=== PATIENT | female | born 1980 | race Caucasian/White ===

== ENCOUNTER 2017-12-10 21:10 | Emergency (ER) | payer OTHER ==
[~2017-12-10] VITALS: Ht 152.4 cm; Wt 70.3 kg
[~2017-12-10 21:10] MED LIST: ACEBUTCAFT; ACET325UDC; ALBU90OI INH; ALPR1; ALPR1 PO; ASPI81EC; AZIT250 PO; AZIT500; AZIT500 PO; BELPHEELB PO; BENZ100A PO; BUTASPCAF; CARI350 PO; CEFD300 PO; CEPH500 PO; CIPR500 PO; CLIN300 PO; CLON.1 PO; CLON.5; CLON1; DIAZ5; DIAZ5 PO; DIPATR PO; DIVA500EC; DIVA500ER; DOCU100; DOXY100; ESOM20; FAMO40 PO; GUAI100SY; HYDACE25S PR; HYDACE5; HYDACE5 PO; HYDACE7.5; HYDGUAL120 PO; HYDR1TAB94 PO; HYOS.125 SL; IBUP600 PO; KETO10 PO; LACT10SY PO; LAMO25 PO; LEVFLO250 PO; LEVO750 PO; LIDO5TO TOP; LOPE2C PO; LORA.5 PO; LORA1 PO; MEDR10 PO; MEDR2.5; MELO7.5 PO; METR500 PO; MULVITMINE; Monodox100 MG PO; NAPR500 PO; NAPR500ERA; NAPR550 PO; NITR100CA PO; OMEP20ER PO; ONDA4ODT MM; OTC POTASSIUM; OXYACE5T PO; OXYC5; PANT40 PO; PARO10; PARO10 PO; PARO20; PARO20 PO; PARO25 PO; PHENA200 PO; PHENY100ER PO; POTCHL20ER PO; PRENZ; PROACE100; PROC10 PO; PROC25S PR; PROC5S; PROM25 PO; RANI150; RXDIPATR PO; RXHYDACE PO; RXLORA1 PO; RXOXYACE PO; RXTRAM50 PO; SERT50 PO; SPACE CHAMBER1 EACH MC; SULTRISS PO; TOPI100; TOPI100 PO; TOPI25; TRAM50; TRAM50 PO
[2017-12-10 21:55] LABS: BASOPHILS ABSOLUTE AUTO 0.04 K/mm3 (0.00-0.23); BASOPHILS PERCENT AUTO 0 % (0-2); EOSINOPHILS ABSOLUTE AUTO 0.11 K/mm3 (0.00-0.68); EOSINOPHILS PERCENT AUTO 1 % (0-6); Hematocrit 43.8 % (33.0-51.0); Hemoglobin 14.4 g/dL (11.5-16.0); IMMATURE GRAN ABSOLUTE AUTO 0.07 K/mm3 (0.00-0.10); IMMATURE GRAN PERCENT AUTO 0 % (0-1); LYMPHOCYTES ABSOLUTE AUTO 2.51 K/mm3 (0.84-5.20); LYMPHOCYTES PERCENT AUTO 14 % (21-46); MONOCYTES ABSOLUTE AUTO 0.94 K/mm3 (0.16-1.47); MONOCYTES PERCENT AUTO 5 % (4-13); Mean Corpuscular HGB 28.5 pg (26.0-34.0); Mean Corpuscular HGB Conc 32.9 g/dL (31.5-36.5); Mean Corpuscular Volume 87 fL (80-100); Mean Platelet Volume 8.8 fL (9.1-12.4); NEUTROPHILS ABSOLUTE AUTO 14.06 K/mm3 (1.96-9.15); NEUTROPHILS PERCENT AUTO 79 % (41-73); Platelet Count 523 K/mm3 (150-400); RDW Coefficient Variation 12.6 % (11.7-14.2); RDW Standard Deviation 39.8 fL (35.1-46.3); Red Blood Cell Count 5.05 M/mm3 (3.80-5.20); White Blood Cell Count 17.73 K/mm3 (4.00-11.30)
[2017-12-10 22:15] LABS: Alanine Aminotransfer (ALT/SGP 18 U/L (12-78); Albumin, Blood 3.6 g/dL (3.4-5.0); Albumin/Globulin Ratio 0.8 (0.8-1.8); Alk Phos 91 U/L (50-136); Anion Gap 6 mmol/L (6-16); Aspartate Aminotrans (AST/SGOT 11 U/L (12-37); Bilirubin, Total 0.3 mg/dL (0.1-1.0); Blood Urea Nitrogen 11 mg/dL (8-24); Bun/Creatinine Ratio 15.4 (12.0-20.0); CO2, Blood 30 mmol/L (21-32); Calcium, Blood 8.5 mg/dL (8.5-10.1); Chloride, Blood 101 mmol/L (98-108); Creatinine, Blood 0.71 mg/dL (0.40-1.00); Globulin, Blood 4.3 g/dL (2.2-4.0); Glomerular Filtration Rate >60 (60-); Glucose, Blood 90 mg/dL (70-99); Potassium, Blood 3.7 mmol/L (3.5-5.5); Sodium, Blood 137 mmol/L (136-145); Total Protein, Blood 7.9 g/dL (6.4-8.2); Troponin I 0.018 ng/mL (0.000-0.040)
[2018-08-31] MEDS ORDERED: Catapres0.1 MG PO (19:44)
== END 2017-12-11 02:41 | disposition home or self-care (01) ==
LOC: ER 21:10
PROVIDERS: Emergency Medicine
DX: R07.81 Pleurodynia (principal); Z88.0 Allergy status to penicillin; Z88.8 Allergy status to other drugs, medicaments and biological substances; Z88.2 Allergy status to sulfonamides; Z86.73 Personal history of transient ischemic attack (TIA), and cerebral infarction without residual deficits; F32.9 Major depressive disorder, single episode, unspecified; F17.200 Nicotine dependence, unspecified, uncomplicated
CPT/HCPCS: 36415; 71046; 71260; 80053; 83605; 83880; 84484; 85025; 87040; 93005; 93010; 96374; 99284; J1885; Q9967

== ENCOUNTER 2018-12-19 10:41 | Emergency (ER) | payer OTHER ==
[~2018-12-19] VITALS: Ht 152.4 cm; Wt 59.0 kg
[~2018-12-19 10:41] MED LIST changes: +Catapres0.1 MG PO
== END 2018-12-19 11:46 | disposition home or self-care (01) ==
LOC: ER 10:41
DX: Z02.2 Encounter for examination for admission to residential institution (principal); Z88.0 Allergy status to penicillin; Z88.8 Allergy status to other drugs, medicaments and biological substances; Z88.2 Allergy status to sulfonamides; Z86.73 Personal history of transient ischemic attack (TIA), and cerebral infarction without residual deficits; F32.9 Major depressive disorder, single episode, unspecified; F17.210 Nicotine dependence, cigarettes, uncomplicated
CPT/HCPCS: 99282

== ENCOUNTER 2019-06-17 15:21 | Emergency (ER) | payer OTHER ==
[~2019-06-17] VITALS: Ht 152.4 cm; Wt 66.7 kg
[~2019-06-17 15:21] MED LIST changes: +Ativan1 MG SL
== END 2019-06-17 15:38 | disposition left against medical advice (07) ==
LOC: ER 15:21
DX: Z53.21 Procedure and treatment not carried out due to patient leaving prior to being seen by health care provider (principal)

== ENCOUNTER 2020-02-03 15:26 | Emergency (ER) | payer OTHER ==
[~2020-02-03] VITALS: Ht 165.1 cm; Wt 65.8 kg
[2020-02-03 16:23] LABS: BASOPHILS ABSOLUTE AUTO 0.03 K/mm3 (0.00-0.23); BASOPHILS PERCENT AUTO 0 % (0-2); EOSINOPHILS ABSOLUTE AUTO 0.08 K/mm3 (0.00-0.68); EOSINOPHILS PERCENT AUTO 1 % (0-6); Hematocrit 44.9 % (33.0-51.0); Hemoglobin 14.4 g/dL (11.5-16.0); IMMATURE GRAN ABSOLUTE AUTO 0.02 K/mm3 (0.00-0.10); IMMATURE GRAN PERCENT AUTO 0 % (0-1); LYMPHOCYTES ABSOLUTE AUTO 1.73 K/mm3 (0.84-5.20); LYMPHOCYTES PERCENT AUTO 18 % (21-46); MONOCYTES ABSOLUTE AUTO 0.47 K/mm3 (0.16-1.47); MONOCYTES PERCENT AUTO 5 % (4-13); Mean Corpuscular HGB 27.4 pg (26.0-34.0); Mean Corpuscular HGB Conc 32.1 g/dL (31.5-36.5); Mean Corpuscular Volume 86 fL (80-100); Mean Platelet Volume 8.8 fL (9.1-12.4); NEUTROPHILS ABSOLUTE AUTO 7.56 K/mm3 (1.96-9.15); NEUTROPHILS PERCENT AUTO 76 % (41-73); Platelet Count 588 K/mm3 (150-400); RDW Coefficient Variation 13.4 % (11.7-14.2); RDW Standard Deviation 42.2 fL (35.1-46.3); Red Blood Cell Count 5.25 M/mm3 (3.80-5.20); White Blood Cell Count 9.89 K/mm3 (4.00-11.30)
[2020-02-03 16:42] LABS: Beta HCG, Quantitative, Serum <1 mIU/mL (0-3)
[2020-02-03 16:43] LABS: Alanine Aminotransfer (ALT/SGP 14 U/L (12-78); Albumin, Blood 3.5 g/dL (3.4-5.0); Albumin/Globulin Ratio 0.8 (0.8-1.8); Alk Phos 112 U/L (50-136); Anion Gap 4 mmol/L (6-16); Aspartate Aminotrans (AST/SGOT 12 U/L (12-37); Bilirubin, Total 0.7 mg/dL (0.1-1.0); Blood Urea Nitrogen 8 mg/dL (8-24); Bun/Creatinine Ratio 12.7 (12.0-20.0); CO2, Blood 30 mmol/L (21-32); Chloride, Blood 105 mmol/L (98-108); Creatinine, Blood 0.63 mg/dL (0.40-1.00); Globulin, Blood 4.3 g/dL (2.2-4.0); Glomerular Filtration Rate >60 (60-); Glucose, Blood 102 mg/dL (70-99); Potassium, Blood 3.9 mmol/L (3.5-5.5); Sodium, Blood 139 mmol/L (136-145); Total Protein, Blood 7.8 g/dL (6.4-8.2)
== END 2020-02-03 17:06 | disposition home or self-care (01) ==
LOC: ER 15:26
PROVIDERS: Emergency Medicine
DX: S09.90XA Unspecified injury of head, initial encounter (principal); S60.222A Contusion of left hand, initial encounter; F32.9 Major depressive disorder, single episode, unspecified; F17.200 Nicotine dependence, unspecified, uncomplicated; R04.0 Epistaxis; Z88.0 Allergy status to penicillin; Z88.2 Allergy status to sulfonamides; V49.9XXA Car occupant (driver) (passenger) injured in unspecified traffic accident, initial encounter
CPT/HCPCS: 36415; 70450; 73110; 73130; 73562-LT; 76856; 80053; 84702; 85025; 99284-25

== ENCOUNTER 2020-03-26 11:43 | Emergency (ER) | payer OTHER ==
[~2020-03-26] VITALS: Ht 152.4 cm; Wt 65.8 kg
== END 2020-03-26 12:52 | disposition home or self-care (01) ==
LOC: ER 11:43
DX: L02.414 Cutaneous abscess of left upper limb (principal); F17.210 Nicotine dependence, cigarettes, uncomplicated; Z88.0 Allergy status to penicillin; Z88.8 Allergy status to other drugs, medicaments and biological substances; Z88.2 Allergy status to sulfonamides
CPT/HCPCS: 10060; 99282-25; J2060

== ENCOUNTER 2020-04-10 21:14 | Emergency (ER) | payer OTHER ==
[~2020-04-10] VITALS: Ht 152.4 cm; Wt 66.7 kg
== END 2020-04-10 21:47 | disposition left against medical advice (07) ==
LOC: ER 21:14
DX: Z53.21 Procedure and treatment not carried out due to patient leaving prior to being seen by health care provider (principal)
CPT/HCPCS: 99281

== ENCOUNTER 2020-09-23 12:36 | Emergency (ER) | payer OTHER ==
[~2020-09-23] VITALS: Ht 152.4 cm; Wt 64.6 kg
[2020-09-23 14:56] LABS: Source, Urine Clean Catch
[2020-09-23 15:10] LABS: Blood, Urine 2+ (Neg); Glucose Qualitative, Urine Neg (Neg); Ketones, Urine 1+ (Neg); Leukocyte Esterase, Urine 3+ (Neg); Nitrite, Urine Pos (Neg); Protein, Urine 2+ (Neg); Urobilinogen, Urine 1+ (Normal)
[2020-09-23 15:18] LABS: Bilirubin, Urine 1+ (Neg)
[2020-09-23 15:19] LABS: Appearance, Urine Hazy (Clear); Color, Urine Yellow (P-Yellow)
[2020-09-23 15:36] LABS: Bacteria Many /hpf; Mucus Light (0-Heavy); Squamous Epithelial Cells Mod /hpf (Few); White Blood Cells, Urine 25-50 /hpf (0-5)
[2020-09-23] MEDS ORDERED: Macrobid 100 M100 MG PO (15:41)
[2020-09-23] MEDS ORDERED: Prednisone20 MG PO (15:41)
[2020-09-23] MEDS ORDERED: IBUP600 PO (15:41)
== END 2020-09-23 15:45 | disposition home or self-care (01) ==
LOC: ER 12:36
PROVIDERS: Physician Assistant
DX: N39.0 Urinary tract infection, site not specified (principal); M54.32 Sciatica, left side; I10 Essential (primary) hypertension; F32.9 Major depressive disorder, single episode, unspecified; F17.210 Nicotine dependence, cigarettes, uncomplicated; Z88.0 Allergy status to penicillin; Z88.2 Allergy status to sulfonamides; Z88.6 Allergy status to analgesic agent; Z86.73 Personal history of transient ischemic attack (TIA), and cerebral infarction without residual deficits
CPT/HCPCS: 81001; 81025; 87077; 87086; 87186; 93971; 99283-25

== ENCOUNTER 2021-06-10 02:43 | Emergency (ER) | payer OTHER ==
[~2021-06-10] VITALS: Ht 152.4 cm; Wt 64.9 kg
[~2021-06-10 02:43] MED LIST changes: +Macrobid 100 M100 MG PO; +Prednisone20 MG PO
[2021-06-10] MEDS ORDERED: Cleocin HCl300 MG PO (06:29)
[2021-06-10] MEDS ORDERED: NARCAN4 M1 (06:29)
== END 2021-06-10 07:16 | disposition home or self-care (01) ==
LOC: ER 02:43
DX: L02.416 Cutaneous abscess of left lower limb (principal); Z88.0 Allergy status to penicillin; Z88.6 Allergy status to analgesic agent; Z88.2 Allergy status to sulfonamides
CPT/HCPCS: 10060; 73700; 99283-25; A9270; J3370

== ENCOUNTER 2022-07-04 22:05 | Emergency (ER) | payer OTHER ==
[~2022-07-04] VITALS: Ht 165.1 cm; Wt 70.3 kg
[~2022-07-04 22:05] MED LIST changes: +Cleocin HCl300 MG PO; +NARCAN4 M1
[2022-07-04] MEDS ORDERED: Vibramycin100 MG PO (22:25)
== END 2022-07-04 23:28 | disposition home or self-care (01) ==
LOC: ER 22:05
DX: Z20.2 Contact with and (suspected) exposure to infections with a predominantly sexual mode of transmission (principal); I10 Essential (primary) hypertension; F17.200 Nicotine dependence, unspecified, uncomplicated; Z86.73 Personal history of transient ischemic attack (TIA), and cerebral infarction without residual deficits; Z88.0 Allergy status to penicillin; Z88.2 Allergy status to sulfonamides; Z88.8 Allergy status to other drugs, medicaments and biological substances
CPT/HCPCS: 96372; 99282-25; A9270; J0696

== ENCOUNTER 2022-11-21 06:03 | Emergency (ER) | payer OTHER ==
[~2022-11-21] VITALS: Ht 152.4 cm; Wt 63.5 kg
[~2022-11-21 06:03] MED LIST changes: +Vibramycin100 MG PO
[2022-11-21 06:51] LABS: BASOPHILS ABSOLUTE AUTO 0.04 K/mm3 (0.00-0.23); BASOPHILS PERCENT AUTO 0 % (0-2); EOSINOPHILS ABSOLUTE AUTO 0.18 K/mm3 (0.00-0.68); EOSINOPHILS PERCENT AUTO 2 % (0-6); Hematocrit 44.1 % (33.0-51.0); Hemoglobin 14.7 g/dL (11.5-16.0); IMMATURE GRAN ABSOLUTE AUTO 0.03 K/mm3 (0.00-0.10); IMMATURE GRAN PERCENT AUTO 0 % (0-1); LYMPHOCYTES ABSOLUTE AUTO 3.29 K/mm3 (0.84-5.20); LYMPHOCYTES PERCENT AUTO 35 % (21-46); MONOCYTES ABSOLUTE AUTO 0.78 K/mm3 (0.16-1.47); MONOCYTES PERCENT AUTO 8 % (4-13); Mean Corpuscular HGB 28.2 pg (26.0-34.0); Mean Corpuscular HGB Conc 33.3 g/dL (31.5-36.5); Mean Corpuscular Volume 85 fL (80-100); NEUTROPHILS ABSOLUTE AUTO 5.17 K/mm3 (1.96-9.15); NEUTROPHILS PERCENT AUTO 55 % (41-73); RDW Coefficient Variation 13.1 % (11.7-14.2); RDW Standard Deviation 40.7 fL (35.1-46.3); Red Blood Cell Count 5.22 M/mm3 (3.80-5.20); White Blood Cell Count 9.49 K/mm3 (4.00-11.30)
[2022-11-21 06:52] LABS: Mean Platelet Volume 9.3 fL (9.1-12.4)
[2022-11-21 06:53] LABS: Source, Urine Voided
[2022-11-21 06:56] LABS: Albumin, Blood 3.6 g/dL (3.4-5.0); Albumin/Globulin Ratio 0.8 (0.8-1.8); Bilirubin, Total 0.5 mg/dL (0.1-1.0); Bun/Creatinine Ratio 16.1 (12.0-20.0); Calcium, Blood 8.9 mg/dL (8.5-10.1); Creatinine, Blood 0.69 mg/dL (0.40-1.00); Globulin, Blood 4.6 g/dL (2.2-4.0); Potassium, Blood 4.1 mmol/L (3.5-5.5); Total Protein, Blood 8.2 g/dL (6.4-8.2)
[2022-11-21 07:09] LABS: Appearance, Urine Clear (Clear); Bilirubin, Urine Neg (Neg); Blood, Urine Neg (Neg); Color, Urine Yellow (P-Yellow); Glucose Qualitative, Urine Neg (Neg); Ketones, Urine Neg (Neg); Leukocyte Esterase, Urine 2+ (Neg); Nitrite, Urine Neg (Neg); Protein, Urine 1+ (Neg); Specific Gravity, Urine 1.015 (1.003-1.022); Urobilinogen, Urine NORM (Normal); pH, Urine 6.5 (5.0-8.0)
[2022-11-21 07:15] LABS: Free Thyroxine 0.87 ng/dL (0.70-1.60)
[2022-11-21 07:17] LABS: Thyroid Stimulating Hormone 6.62 uIU/mL (0.360-4.800); Triiodothyronine, Free 2.86 pg/mL (2.18-3.98)
[2022-11-21 07:25] LABS: Bacteria Not Seen /hpf; Red Blood Cells, Urine Not Seen /hpf (0-2); Squamous Epithelial Cells Rare /hpf (Few)
[2022-11-21] MEDS ORDERED: Prinivil10 MG PO (08:29)
== END 2022-11-21 08:46 | disposition home or self-care (01) ==
LOC: ER 06:03
PROVIDERS: Emergency Medicine; Student in an Organized Health Care Education/Training Program
DX: I10 Essential (primary) hypertension (principal); Z91.14 Patient's other noncompliance with medication regimen; R00.0 Tachycardia, unspecified; F17.210 Nicotine dependence, cigarettes, uncomplicated; Z88.0 Allergy status to penicillin; Z88.2 Allergy status to sulfonamides; Z88.5 Allergy status to narcotic agent; Z79.899 Other long term (current) drug therapy
CPT/HCPCS: 71046; 80053; 81001; 83735; 83880; 84145; 84439; 84443; 84481; 84484; 85025; 93005; 93010; A9270; J7030

== ENCOUNTER 2023-07-10 23:46 | Emergency (ER) | payer OTHER ==
[~2023-07-10] VITALS: Ht 152.4 cm; Wt 63.5 kg
[~2023-07-10 23:46] MED LIST changes: +Prinivil10 MG PO
[2023-07-11 00:15] VITALS: BP 132/80
[2023-07-11] MEDS ORDERED: CEPH500 PO (00:26)
[2023-07-11] MEDS ORDERED: CLIN300 PO (00:26)
== END 2023-07-11 00:40 | disposition home or self-care (01) ==
LOC: ER 23:46
DX: L03.116 Cellulitis of left lower limb (principal); L03.115 Cellulitis of right lower limb; F11.90 Opioid use, unspecified, uncomplicated; F15.10 Other stimulant abuse, uncomplicated; F17.210 Nicotine dependence, cigarettes, uncomplicated; Z88.0 Allergy status to penicillin; Z88.2 Allergy status to sulfonamides; Z88.8 Allergy status to other drugs, medicaments and biological substances; Z79.899 Other long term (current) drug therapy
CPT/HCPCS: 99283; A9270

== ENCOUNTER 2024-05-22 13:07 | Emergency (ER) | payer OTHER ==
[~2024-05-22] VITALS: Ht 152.4 cm; Wt 63.5 kg
[~2024-05-22 13:07] MED LIST changes: +CATAPRES0.1 MG PO
[2024-05-22 13:30] VITALS: BP 131/93
== END 2024-05-22 13:33 | disposition home or self-care (01) ==
LOC: ER 13:07
DX: F41.9 Anxiety disorder, unspecified (principal); I10 Essential (primary) hypertension; F17.210 Nicotine dependence, cigarettes, uncomplicated; Z79.899 Other long term (current) drug therapy; Z88.0 Allergy status to penicillin; Z88.2 Allergy status to sulfonamides; Z88.8 Allergy status to other drugs, medicaments and biological substances; Z88.6 Allergy status to analgesic agent
CPT/HCPCS: 99283

== ENCOUNTER 2024-05-31 12:02 | Emergency (ER) | payer OTHER ==
[~2024-05-31] VITALS: Ht 152.4 cm; Wt 61.2 kg
[2024-05-31 13:48] LABS: BASOPHILS ABSOLUTE AUTO 0.04 K/mm3 (0.00-0.23); BASOPHILS PERCENT AUTO 0 % (0-2); EOSINOPHILS ABSOLUTE AUTO 0.13 K/mm3 (0.00-0.68); EOSINOPHILS PERCENT AUTO 1 % (0-6); Hematocrit 38.2 % (33.0-51.0); Hemoglobin 12.9 g/dL (11.5-16.0); IMMATURE GRAN ABSOLUTE AUTO 0.06 K/mm3 (0.00-0.10); IMMATURE GRAN PERCENT AUTO 0 % (0-1); LYMPHOCYTES ABSOLUTE AUTO 2.56 K/mm3 (0.84-5.20); LYMPHOCYTES PERCENT AUTO 18 % (21-46); MONOCYTES ABSOLUTE AUTO 1.06 K/mm3 (0.16-1.47); MONOCYTES PERCENT AUTO 7 % (4-13); Mean Corpuscular HGB 28.4 pg (26.0-34.0); Mean Corpuscular HGB Conc 33.8 g/dL (31.5-36.5); Mean Corpuscular Volume 84 fL (80-100); Mean Platelet Volume 8.4 fL (9.1-12.4); NEUTROPHILS ABSOLUTE AUTO 10.48 K/mm3 (1.96-9.15); NEUTROPHILS PERCENT AUTO 73 % (41-73); Platelet Count 436 K/mm3 (150-400); RDW Standard Deviation 39.4 fL (35.1-46.3); Red Blood Cell Count 4.55 M/mm3 (3.80-5.20); White Blood Cell Count 14.33 K/mm3 (4.00-11.30)
[2024-05-31 14:04] LABS: C-REACTIVE PROTEIN, EXT RANGE 5.92 mg/dL (0.000-0.300)
[2024-05-31 14:05] LABS: Albumin, Blood 3.3 g/dL (3.4-5.0); Albumin/Globulin Ratio 0.8 (0.8-1.8); Bilirubin, Total 0.3 mg/dL (0.1-1.0); Calcium, Blood 8.7 mg/dL (8.5-10.1); Creatinine, Blood 0.68 mg/dL (0.40-1.00); Globulin, Blood 4.1 g/dL (2.2-4.0); Potassium, Blood 3.7 mmol/L (3.5-5.5); Total Protein, Blood 7.4 g/dL (6.4-8.2)
[2024-05-31 14:09] LABS: BASOPHILS PERCENT MAN 0 % (0-2); EOSINOPHILS ABSOLUTE MAN 0.14 K/mm3 (0.00-0.68); EOSINOPHILS PERCENT MAN 1 % (0-6); LYMPHOCYTES % ATYPICAL MANUAL 4 % (0-0); LYMPHOCYTES ABSOLUTE MAN 11.32 K/mm3 (0.84-5.20); LYMPHOCYTES PERCENT MAN 75 % (21-46); MONOCYTES PERCENT MAN 7 % (4-13); NEUTROPHILS ABSOLUTE MAN 1.86 K/mm3 (1.96-9.15); SEG NEUTROPHILS PERCENT MAN 13 % (41-73); TOTAL CELLS COUNTED 100
[2024-05-31] MEDS ORDERED: Lactated Ringer's 1,000 ML IV ONE (14:15)
[2024-05-31] MEDS ORDERED: Doxycycline Hyclate 100 MG TAB PO ONE (14:30)
[2024-05-31] MEDS ORDERED: Cephalexin Monohydrate 500 MG Cap PO ONE (14:35)
[2024-05-31] MEDS ORDERED: CEPH500 PO (14:38)
[2024-05-31] MEDS ORDERED: DOXY100 PO (14:38)
[2024-05-31 15:33] VITALS: BP 214/122
== END 2024-05-31 16:23 | disposition home or self-care (01) ==
LOC: ER 12:02
PROVIDERS: Physician Assistant
DX: L03.113 Cellulitis of right upper limb (principal); F19.90 Other psychoactive substance use, unspecified, uncomplicated; I10 Essential (primary) hypertension; F17.210 Nicotine dependence, cigarettes, uncomplicated; Z88.0 Allergy status to penicillin; Z88.2 Allergy status to sulfonamides; Z88.8 Allergy status to other drugs, medicaments and biological substances
CPT/HCPCS: 10060; 36415; 80053; 83605; 85025; 86140; 87040; 96360-59; 96361-59; 99283-25; A9270; J7120

== ENCOUNTER 2025-01-29 16:38 | Emergency (ER) | payer OTHER ==
[~2025-01-29] VITALS: Ht 152.4 cm; Wt 59.0 kg
[~2025-01-29 16:38] MED LIST changes: +DOXY100 PO
[2025-01-29 17:50] LABS: BASOPHILS ABSOLUTE AUTO 0.04 K/mm3 (0.00-0.23); BASOPHILS PERCENT AUTO 0 % (0-2); EOSINOPHILS ABSOLUTE AUTO 0.07 K/mm3 (0.00-0.68); EOSINOPHILS PERCENT AUTO 1 % (0-6); Hematocrit 40.9 % (33.0-51.0); Hemoglobin 13.2 g/dL (11.5-16.0); IMMATURE GRAN ABSOLUTE AUTO 0.05 K/mm3 (0.00-0.10); IMMATURE GRAN PERCENT AUTO 0 % (0-1); LYMPHOCYTES ABSOLUTE AUTO 3.07 K/mm3 (0.84-5.20); LYMPHOCYTES PERCENT AUTO 23 % (21-46); MONOCYTES ABSOLUTE AUTO 0.75 K/mm3 (0.16-1.47); MONOCYTES PERCENT AUTO 6 % (4-13); Mean Corpuscular HGB 26.4 pg (26.0-34.0); Mean Corpuscular HGB Conc 32.3 g/dL (31.5-36.5); Mean Corpuscular Volume 82 fL (80-100); Mean Platelet Volume 8.6 fL (9.1-12.4); NEUTROPHILS ABSOLUTE AUTO 9.61 K/mm3 (1.96-9.15); NEUTROPHILS PERCENT AUTO 71 % (41-73); Platelet Count 561 K/mm3 (150-400); RDW Coefficient Variation 13.6 % (11.7-14.2); RDW Standard Deviation 40.3 fL (35.1-46.3); White Blood Cell Count 13.59 K/mm3 (4.00-11.30)
[2025-01-29 18:08] LABS: Albumin, Blood 3.5 g/dL (3.4-5.0); Albumin/Globulin Ratio 0.7 (0.8-1.8); Bilirubin, Total 0.8 mg/dL (0.1-1.0); Bun/Creatinine Ratio 12.6 (12.0-20.0); Creatinine, Blood 1.35 mg/dL (0.40-1.00); Globulin, Blood 4.8 g/dL (2.2-4.0); Potassium, Blood 3.9 mmol/L (3.5-5.5); Total Protein, Blood 8.3 g/dL (6.4-8.2)
[2025-01-29] MEDS ORDERED: Dexamethasone Sod Phos 10 MG/ML 1ML VIAL PO ONE (19:45)
[2025-01-29 20:00] VITALS: BP 184/126
== END 2025-01-29 20:07 | disposition home or self-care (01) ==
LOC: ER 16:38
PROVIDERS: Physician Assistant
DX: J02.9 Acute pharyngitis, unspecified (principal); M54.2 Cervicalgia; I10 Essential (primary) hypertension; F17.210 Nicotine dependence, cigarettes, uncomplicated; Z88.1 Allergy status to other antibiotic agents; Z88.0 Allergy status to penicillin; Z88.2 Allergy status to sulfonamides; Z79.899 Other long term (current) drug therapy; Z79.2 Long term (current) use of antibiotics; Z79.891 Long term (current) use of opiate analgesic; Z59.89 Other problems related to housing and economic circumstances
CPT/HCPCS: 70491; 71046; 80053; 85025; 87081; 87430; 93005; 93010; 99284-25; J1100; Q9967